=== PATIENT | male | born 1970 | race Caucasian/White ===

== ENCOUNTER 2024-08-17 00:35 | Day surgery (SDC) | payer BC, SELFPAY ==
[2024-07-30 10:29] VITALS: BMI 30.2
[2024-08-17 07:22] VITALS: BP 158/80; PULSE 57; RESP 18; TEMP 36.6; O2SAT 99
[2024-08-17] MEDS: LACTATED RINGERS 1,000 ML 150 ML IV CONT (07:31)
--- NOTE | 2024-08-17 08:29 | P.PNAN_ITS ---
Anes - Initial Pre Proc Eval Procedure: Operation Date: 08/17/24 08:30 Proposed Procedures p Colonoscopy - Jarred Yao MD Date/Time: 08/17/24 08:29 Surgeon: Jarred Yao MD Pre Op Diagnosis: hx of colon polyps Patient Data Age: 54 Gender: M Height: 1.88 m Weight: 109.6 kg Last Vital Signs Temp 97.8 F 08/17/24 07:22 Pulse 57 L 08/17/24 07:22 Resp 18 08/17/24 07:22 BP 158/80 H 08/17/24 07:22 Pulse Ox 99 08/17/24 07:22 O2 Del Method Room Air 08/17/24 07:22 Allergies Allergy/AdvReac Type Severity Reaction Status Date / Time No Known Allergies Allergy Verified 08/17/24 07:20 Home Medications ?Medication ?Instructions ?Recorded ?Confirmed ?Type amlodipine 5 mg tablet 5 mg PO DAILY #90 tabs 02/17/24 08/17/24 Rx candesartan 32 1 tablet PO QAM #90 tabs 02/17/24 08/17/24 Rx mg-hydrochlorothiazide 25 mg tablet minocycline 100 mg capsule 100 mg PO DAILY PRN acne #30 caps 05/27/24 08/17/24 Rx benzonatate 200 mg capsule 200 mg PO TID PRN cough #30 caps 07/21/24 07/30/24 Rx Patient hx anesthesia problems: none Family hx anesthesia problems: none Results Review: All pre-operative results and documents have been reviewed as part of the pre- operative evaluation. [facility] Past Medical History Medical History Adult acne Dupuytren contracture Essential (primary) hypertension Gout Hypertension Personal history of colonic polyps Pure hypercholesterolemia, unspecified Screening for malignant neoplasm of prostate Social History Social History (Updated 02/17/24 @ 10:08 by Miriam Koch MA) Smoking status: Former smoker Tobacco type: cigarettes Alcohol intake: current Drinks per week: 2 Substance use: current Substance use type: does not use Do You Feel Safe in your Home?: Yes Lack of Transportation: No Lack of Food: Never True Current Housing: I Have Housing Concerned About Future Housing: No Difficulty Paying Gas/Electric Bills: No Difficulty Paying for Meds: No Currently Unemployed: No Education: Trade/Vocational Certificate Difficulty w/ Childcare or Family Care: No Living arrangements: alone Occupation/Education: occupation Gender identity (if verbalized by the patient): Male Sexual Orientation (if Verbalized by the Patient): Straight or Heterosexual Spiritual care concerns: No Anes - Eval Final PreProcedure Day of Procedure 08/17/24 08:29 Patient weight: obese Heart: regular rate and rhythm Lungs: clear to auscultation Airway: Mallampati scale class II Neurological: alert and oriented Last oral intake: >/= 8 hours ASA classification: II Emergent: no Anesthetic plan: proceed Anesthesia type and monitoring: general GIVS and standard monitoring Results Review: All pre-operative results and documents have been reviewed as part of the pre- operative evaluation. Informed Consent: The patient's anesthetic plan and its attendant risks and benefits were discussed with the patient/family/POA. Questions were solicited and answers provided to the satisfaction of the patient/family/POA.
--- NOTE | 2024-08-17 08:37 | PM.HPGS ---
History of Present Illness History of Present Illness Consent: Risks, benefits, and alternatives have been discussed and questions answered. Patient agrees to proceed with procedure. Chief complaint: hx of colon polyps Narrative: Fredy Mendoza is a 54 year old male with colon polyp in 2019 Review of Systems Review of Systems: All systems reviewed & are unremarkable except as noted in HPI and below PMFSH Past Medical History Medical History Adult acne Dupuytren contracture Essential (primary) hypertension Gout Hypertension Personal history of colonic polyps Pure hypercholesterolemia, unspecified Screening for malignant neoplasm of prostate Social History Social History (Updated 02/17/24 @ 10:08 by Miriam oKch MA) Smoking status: Former smoker Tobacco type: cigarettes Alcohol intake: current Drinks per week: 2 Substance use: current Substance use type: does not use Do You Feel Safe in your Home?: Yes Lack of Transportation: No Lack of Food: Never True Current Housing: I Have Housing Concerned About Future Housing: No Difficulty Paying Gas/Electric Bills: No Difficulty Paying for Meds: No Currently Unemployed: No Education: Trade/Vocational Certificate Difficulty w/ Childcare or Family Care: No Living arrangements: alone Occupation/Education: occupation Gender identity (if verbalized by the patient): Male Sexual Orientation (if Verbalized by the Patient): Straight or Heterosexual Spiritual care concerns: No Meds Home Medications and Allergies Home Medications ?Medication ?Instructions ?Recorded ?Confirmed ?Type amlodipine 5 mg tablet 5 mg PO DAILY #90 tabs 02/17/24 08/17/24 Rx candesartan 32 1 tablet PO QAM #90 tabs 02/17/24 08/17/24 Rx mg-hydrochlorothiazide 25 mg tablet minocycline 100 mg capsule 100 mg PO DAILY PRN acne #30 caps 05/27/24 08/17/24 Rx benzonatate 200 mg capsule 200 mg PO TID PRN cough #30 caps 07/21/24 07/30/24 Rx Allergies Allergy/AdvReac Type Severity Reaction Status Date / Time No Known Allergies Allergy Verified 08/17/24 07:20 Vital Signs Vital Signs - 24 hr 08/17/24 07:22 Temperature 97.8 F Pulse Rate 57 L Respiratory Rate 18 Blood Pressure 158/80 H Pulse Oximetry 99 Oxygen Delivery Room Air Exam Const: General: comfortable and no acute distress HENMT: Face/Nose/Sinus: Normal nares present Eyes: General: appearance normal, both eyes and all related structures Neck: Neck: no JVD Resp: Auscultation: clear to auscultation bilaterally Cardio: Rate: regular rate Rhythm: regular rhythm GI: Inspection: non-distended GI Palp: Yes Soft to palpation Skin: General skin exam: normal color Neuro: General: gait normal Speech: normal speech Extrem: General: normal to inspection Psych: Mental Status: mental status grossly normal Assessment and Plan Assessment and plan (1) Personal history of colonic polyps: Code(s): Z86.010 - Personal history of colon polyps Status: Acute Assessment and Plan: colonoscopy
[2024-08-17 09:00] VITALS: BP 141/80; PULSE 53; RESP 19; O2SAT 98
[2024-08-17 09:10] VITALS: BP 157/93; PULSE 56; RESP 20; O2SAT 100
[2024-08-17 09:20] VITALS: BP 165/94; PULSE 55; RESP 20; O2SAT 100
== END 2024-08-17 09:30 | disposition home or self-care (01) ==
PROVIDERS: PCP Family Medicine; Referring Provider Nurse Practitioner Family; Visit Provider Internal Medicine Gastroenterology
PROC: 0DJD8ZZ Inspection of Lower Intestinal Tract, Via Natural or Artificial Opening Endoscopic (ICD-10-PCS; CPT 45378; principal; 2024-08-17 08:30)
DX: Z12.11 Encounter for screening for malignant neoplasm of colon (principal); K63.5 Polyp of colon; I10 Essential (primary) hypertension; E78.00 Pure hypercholesterolemia, unspecified; M72.0 Palmar fascial fibromatosis [Dupuytren]; E66.9 Obesity, unspecified; Z68.31 Body mass index [BMI] 31.0-31.9, adult; Z87.891 Personal history of nicotine dependence
CPT/HCPCS: 45380; 45385; 88305; J2003; J2704; J7120